=== PATIENT | female | born 1990 | race Caucasian/White ===

== ENCOUNTER → 2017-11-28 | Outpatient (CLI) | payer OTHER | LOC: M RAD 13:14 | DX: R22.9 Localized swelling, mass and lump, unspecified (principal) | CPT/HCPCS: 76536 ==

== ENCOUNTER → 2018-02-14 | Outpatient (CLI) | payer OTHER ==
[2018-02-14 17:09] LABS: HEMOGLOBIN 10.6 g/dl (12.0-16.0); MEAN CORPUSCULAR HGB CONC 34.2 g/dl (32.0-36.5); MEAN CORPUSCULAR VOLUME 87.8 fl (80.0-96.0); PLATELET COUNT, AUTOMATED 256 10^3/uL (150-450); RED BLOOD COUNT 3.53 10^6/uL (4.00-5.40); RED CELL DISTRIBUTION WIDTH 12.1 % (11.5-14.5); WHITE BLOOD COUNT 6.5 10^3/uL (4.0-10.0)
== END ==
LOC: M WUC 14:09
DX: N93.9 Abnormal uterine and vaginal bleeding, unspecified (principal)
CPT/HCPCS: 85027

== ENCOUNTER → 2018-02-18 | Outpatient (REF) | payer OTHER | LOC: M LAB REF 15:03 | DX: N93.9 Abnormal uterine and vaginal bleeding, unspecified (principal) ==

== ENCOUNTER 2018-03-17 10:50 | Emergency (ER) | payer OTHER ==
[2018-03-17 11:33] LABS: KETONE, URINE AUTO RFX 1+ mg/dL (NEGATIVE); LEUKOCYTE ESTERASE UR AUTO RFX NEGATIVE (NEGATIVE); MUCUS, URINE RFX SMALL (NEGATIVE); NITRITE, URINE AUTO RFX NEGATIVE (NEGATIVE); RBC, URINE AUTO RFX 2 /HPF (0-3); SPECIFIC GRAVITY UR AUTO RFX 1.019 (1.002-1.035); SQUAM EPITHELIAL CELL UR AURFX 3 /HPF (0-6); WBC, URINE AUTO RFX 1 /HPF (0-3)
[2018-03-17] MEDS: NS 1,000 ML IV (12:35)
[2018-03-17] MEDS: MORPHINE 4 MG/ML 1ML VIAL/SYRINGE (J2270) IV (12:35)
[2018-03-17] MEDS: ONDANSETRON 4MG/2ML VIAL (J2405) IV (12:35)
[2018-03-17] MEDS: GASTROGRAFIN SOLUTION 30ML PO ×2 (12:55→13:00)
[2018-03-17] MEDS: diphenhydrAMINE INJ 50MG/ML VIAL (J1200) IV (12:55)
[2018-03-17 13:42] LABS: BASO % 0.3 % (0.0-1.0); EOS % 0.1 % (0.0-3.0); HEMATOCRIT 38.1 % (36.0-47.0); HEMOGLOBIN 13.9 g/dl (12.0-15.5); IMMATURE GRANULOCYTE % 0.4 % (0-3.0); LYMPH # 1.7 10^3/uL (1.5-6.5); LYMPH % 21.4 % (24.0-44.0); MEAN CORPUSCULAR HEMOGLOBIN 31.3 pg (27.0-33.0); MEAN CORPUSCULAR HGB CONC 36.5 g/dl (32.0-36.5); MEAN CORPUSCULAR VOLUME 85.8 fl (80.0-96.0); MONO # 0.6 10^3/uL (0.0-0.8); MONO % 7.5 % (0.0-5.0); NEUTROPHILS # 5.6 10^3/uL (1.8-7.7); NEUTROPHILS % 70.3 % (36.0-66.0); PLATELET COUNT, AUTOMATED 264 10^3/uL (150-450); RED BLOOD COUNT 4.44 10^6/uL (4.00-5.40); RED CELL DISTRIBUTION WIDTH 11.9 % (11.5-14.5); WHITE BLOOD COUNT 7.9 10^3/uL (4.0-10.0)
[2018-03-17 13:43] LABS: ALBUMIN 4.9 GM/DL (3.2-5.2); ALBUMIN/GLOBULIN RATIO 1.29 (1.00-1.93); ALKALINE PHOSPHATASE 51 U/L (45-117); ALT/SGPT 17 U/L (12-78); ANION GAP 8 MEQ/L (8-16); AST/SGOT 10 U/L (7-37); BILIRUBIN,DIRECT 0.2 MG/DL (0.0-0.2); BILIRUBIN,TOTAL 0.8 MG/DL (0.2-1.0); BLOOD UREA NITROGEN 11 MG/DL (7-18); CALCIUM LEVEL 9.8 MG/DL (8.5-10.1); CARBON DIOXIDE LEVEL 25 MEQ/L (21-32); CHLORIDE LEVEL 108 MEQ/L (98-107); CREATININE FOR GFR 0.81 MG/DL (0.55-1.30); GLOMERULAR FILTRATION RATE > 60.0 (>60); GLUCOSE, FASTING 82 MG/DL (70-100); LIPASE 165 U/L (73-393); POTASSIUM SERUM 3.4 MEQ/L (3.5-5.1); SODIUM LEVEL 141 MEQ/L (136-145); TOTAL PROTEIN 8.7 GM/DL (6.4-8.2)
[2018-03-17] MEDS ORDERED: ISOVUE-370 76% 100ML VIAL (Q9967) As Ordered (14:08)
[2018-03-17] MEDS: POTASSIUM CHLORIDE 10 MEQ SR TABLET PO (14:15)
[2018-03-17] MEDS: CIPROFLOXACIN 500 MG TAB PO (15:29)
[2018-03-17] MEDS: metroNIDAZOLE (FLAGYL) 500 MG TAB PO (15:29)
== END 2018-03-17 15:41 | disposition home or self-care (01) ==
LOC: M ED 10:50
DX: K52.9 Noninfective gastroenteritis and colitis, unspecified (principal); K21.9 Gastro-esophageal reflux disease without esophagitis; F33.9 Major depressive disorder, recurrent, unspecified; M51.9 Unspecified thoracic, thoracolumbar and lumbosacral intervertebral disc disorder; F19.21 Other psychoactive substance dependence, in remission; Z79.899 Other long term (current) drug therapy; Z87.891 Personal history of nicotine dependence
CPT/HCPCS: J2270

== ENCOUNTER → 2019-06-26 | Outpatient (CLI) | payer MEDICAID ==
[~2019-06-26] MED LIST: AUGM875T27 PO; BISM262C8 PO; BUPR300T34 PO; BUSP10TA PO; CIPR-249 PO; COLA100C5 PO; FERR325T3 PO; FLAG500T PO; LEVA750T7 PO; NAPR-855 PO; OXYC1TAB23 PO; PERC5TAB12 PO; PERCOCET PO; PRAZ2CAP PO; PRIL20CA; TRAZ-163 PO; TYLE500T78 PO; [UNRECOGNIZED DRUG - OTHER]; [UNRECOGNIZED DRUG - REMARK]; naproxen PO
== END ==
LOC: M OUTALCOH 07:59
PROVIDERS: ATTEND Psychiatry & Neurology Psychiatry
DX: F11.20 Opioid dependence, uncomplicated (principal); F15.20 Other stimulant dependence, uncomplicated

== ENCOUNTER 2019-07-29 08:45 | Outpatient (RCR) | payer MEDICAID | END 2019-08-01 | LOC: M OUTALCOH 08:45 | PROVIDERS: ATTEND Psychiatry & Neurology Psychiatry | DX: F11.20 Opioid dependence, uncomplicated (principal); F15.20 Other stimulant dependence, uncomplicated; F17.200 Nicotine dependence, unspecified, uncomplicated ==

== ENCOUNTER 2019-08-22 21:42 | Emergency (ER) | payer MEDICAID, OTHER ==
[~2019-08-22] VITALS: Ht 167.6 cm; Wt 52.3 kg
[2019-08-22 21:42] VITALS: BP 133/72
[2019-08-22] MEDS ORDERED: SUBO8MIS SL (21:51)
[2019-08-22] MEDS ORDERED: AUGM875T28 PO (21:59)
[2019-08-22] MEDS ORDERED: AUGMENTIN 875 MG TAB PO ONE (22:00)
== END 2019-08-22 22:05 | disposition home or self-care (01) ==
LOC: M ED 21:42
DX: K02.9 Dental caries, unspecified (principal); F17.200 Nicotine dependence, unspecified, uncomplicated; F32.9 Major depressive disorder, single episode, unspecified; K21.9 Gastro-esophageal reflux disease without esophagitis; Z86.14 Personal history of Methicillin resistant Staphylococcus aureus infection; Z79.899 Other long term (current) drug therapy; M54.5 Low back pain

== ENCOUNTER → 2019-08-31 | Outpatient (RCR) | payer MEDICAID ==
[~2019-08-31] MED LIST changes: +AUGM875T28 PO; +SUBO8MIS SL
== END ==
LOC: M OUTALCOH 08-05 14:56
PROVIDERS: ATTEND Psychiatry & Neurology Psychiatry
DX: F11.20 Opioid dependence, uncomplicated (principal); F15.20 Other stimulant dependence, uncomplicated; F17.200 Nicotine dependence, unspecified, uncomplicated

== ENCOUNTER 2019-09-04 21:07 | Emergency (ER) | payer MEDICAID, OTHER ==
[~2019-09-04] VITALS: Ht 167.6 cm; Wt 52.3 kg
[2019-09-04] MEDS ORDERED: NS 1,000 ML IV ONE (22:00)
[2019-09-04] MEDS ORDERED: PANTOPRAZOLE 40MG INJ (PROTONIX) (C9113) IV ONE (22:00)
[2019-09-04 22:08] LABS: BASO % 0.4 % (0.0-1.0); EOS # 0.2 10^3/uL (0.0-0.5); EOS % 2.1 % (0.0-3.0); HEMATOCRIT 37.5 % (36.0-47.0); HEMOGLOBIN 12.4 g/dl (12.0-15.5); LYMPH # 2.2 10^3/uL (1.5-5.0); MEAN CORPUSCULAR HEMOGLOBIN 30.2 pg (27.0-33.0); MEAN CORPUSCULAR HGB CONC 33.1 g/dl (32.0-36.5); MEAN CORPUSCULAR VOLUME 91.5 fl (80.0-96.0); MONO # 0.5 10^3/uL (0.0-0.8); MONO % 6.9 % (0.0-5.0); NEUTROPHILS # 4.7 10^3/uL (1.5-8.5); NEUTROPHILS % 61.2 % (36.0-66.0); PLATELET COUNT, AUTOMATED 294 10^3/uL (150-450); WHITE BLOOD COUNT 7.7 10^3/uL (4.0-10.0)
[2019-09-04 22:47] LABS: ALBUMIN 3.7 GM/DL (3.2-5.2); ALT/SGPT 17 U/L (12-78); BILIRUBIN,DIRECT < 0.1 MG/DL (0.0-0.2); BILIRUBIN,TOTAL 0.2 MG/DL (0.2-1.0); BLOOD UREA NITROGEN 12 MG/DL (7-18); CALCIUM LEVEL 8.8 MG/DL (8.5-10.1); CARBON DIOXIDE LEVEL 28 MEQ/L (21-32); CHLORIDE LEVEL 107 MEQ/L (98-107); CREATININE FOR GFR 0.74 MG/DL (0.55-1.30); GLOMERULAR FILTRATION RATE > 60.0 (>60); GLUCOSE, FASTING 80 MG/DL (70-100); LIPASE 106 U/L (73-393); POTASSIUM SERUM 4.6 MEQ/L (3.5-5.1); SODIUM LEVEL 139 MEQ/L (136-145); TOTAL PROTEIN 7.2 GM/DL (6.4-8.2)
[2019-09-04 23:15] VITALS: BP 115/61
[2019-09-04] MEDS ORDERED: MIRA3350 PO (23:29)
--- NOTE | 2019-09-05 08:52 | REP ---
Acute abdominal series three views including PA chest and supine upright abdomen: PA chest: Comparison is 02/22/2016. The lung gentile are clear. Cardiac size is normal. The len, mediastinum, skeletal structures are unremarkable. There is no free subdiaphragmatic air. Impression: Negative PA chest. Abdomen, supine upright views: Comparison is the abdomen/pelvis CT dated 03/17/2018. The bowel gas pattern is normal. There are no calcifications. The skeletal structures and soft tissues otherwise are. Impression: Normal bowel gas pattern. Electronically Signed by Thee Cuadra MD 09/05/2019 08:44 A
== END 2019-09-04 23:38 | disposition home or self-care (01) ==
LOC: M ED 21:07
DX: K59.00 Constipation, unspecified (principal); K21.9 Gastro-esophageal reflux disease without esophagitis; F17.200 Nicotine dependence, unspecified, uncomplicated; Z79.899 Other long term (current) drug therapy
CPT/HCPCS: 74021; 80048; 80076; 83690; 84702; 85025; 96374; 99284; C9113

== ENCOUNTER 2019-09-10 09:00 | Outpatient (RCR) | payer MEDICAID ==
[~2019-09-10 09:00] MED LIST changes: +MIRA3350 PO
== END 2019-10-01 ==
LOC: M OUTALCOH 09:00
PROVIDERS: ATTEND Psychiatry & Neurology Psychiatry
DX: F11.20 Opioid dependence, uncomplicated (principal); F15.20 Other stimulant dependence, uncomplicated; F17.200 Nicotine dependence, unspecified, uncomplicated

== ENCOUNTER → 2019-10-14 | Outpatient (CLI) | payer MEDICAID ==
[2019-10-14 11:15] LABS: HEMATOCRIT 38.4 % (36.0-47.0); HEMOGLOBIN 12.8 g/dl (12.0-15.5); MEAN CORPUSCULAR HEMOGLOBIN 30.1 pg (27.0-33.0); MEAN CORPUSCULAR HGB CONC 33.3 g/dl (32.0-36.5); MEAN CORPUSCULAR VOLUME 90.4 fl (80.0-96.0); PLATELET COUNT, AUTOMATED 325 10^3/uL (150-450); RED BLOOD COUNT 4.25 10^6/uL (4.00-5.40); WHITE BLOOD COUNT 7.2 10^3/uL (4.0-10.0)
[2019-10-14 11:41] LABS: ALBUMIN 3.8 GM/DL (3.2-5.2); ALT/SGPT 17 U/L (12-78); BILIRUBIN,TOTAL 0.3 MG/DL (0.2-1.0); BLOOD UREA NITROGEN 10 MG/DL (7-18); CALCIUM LEVEL 9.1 MG/DL (8.5-10.1); CARBON DIOXIDE LEVEL 28 MEQ/L (21-32); CHLORIDE LEVEL 107 MEQ/L (98-107); CREATININE FOR GFR 0.74 MG/DL (0.55-1.30); GLOMERULAR FILTRATION RATE > 60.0 (>60); GLUCOSE, FASTING 100 MG/DL (70-100); POTASSIUM SERUM 4.5 MEQ/L (3.5-5.1); SODIUM LEVEL 140 MEQ/L (136-145); TOTAL PROTEIN 7.8 GM/DL (6.4-8.2)
[2019-10-14 11:43] LABS: HCG, SERUM QUALITATIVE NEGATIVE (NEGATIVE)
[2019-10-14 12:01] LABS: HEPATITIS B SURFACE ANTIGEN NEGATIVE (NEGATIVE)
[2019-10-14 12:30] LABS: HIV 1&2 SCREEN CENTAUR NEGATIVE (NEGATIVE)
[2019-10-14 12:37] LABS: HEPATITIS C VIRUS ABY INDEX > 11.0 INDEX (<0.8)
[2019-10-14 13:08] LABS: CHLAMYDIA DNA AMPLIFICATION NEGATIVE (NEGATIVE); GC DNA AMPLIFICATION NEGATIVE (NEGATIVE)
--- NOTE | 2019-10-14 13:55 | ECGEPIP ---
[facility] Test Date: 2019-10-14 Pat Name: LYLE BAKER Department: Room: - Gender: Female Ultrasound Tech: JUANCHO : 1990 Requested By: Thee Penaloza Order Number: [id number] Reading MD: Arianne Fuentes Measurements Intervals [place] Rate: 57 P: 22 LA: 118 QRS: 75 QRSD: 97 T: 58 QT: 421 QTc: 412 Interpretive Statements SINUS BRADYCARDIA WITH SHORT LA INTERVAL SLOWER RATE AND SHORTER LA C/W PRIOR IMPROVED VOLTAGE LIMB LEADS C/W 02/23/16 Electronically Signed on 10-14-2019 13:55:11 EST by Arianne Fuentes
== END ==
LOC: M LAB 10:04
PROVIDERS: ATTEND Family Medicine
DX: F11.20 Opioid dependence, uncomplicated (principal)

== ENCOUNTER 2019-10-30 08:51 | Emergency (ER) | payer MEDICAID, OTHER ==
[~2019-10-30] VITALS: Ht 167.6 cm; Wt 54.9 kg
[2019-10-30] MEDS ORDERED: METH10CO3 PO (09:02)
[2019-10-30] MEDS ORDERED: ONDANSETRON 4MG/2ML VIAL (J2405) IV ONE (09:30)
[2019-10-30] MEDS ORDERED: NS 1,000 ML IV ONE (09:30)
[2019-10-30] MEDS ORDERED: KETOROLAC 30 MG/ML VIAL (J1885) IV ONE (09:30)
[2019-10-30 09:57] LABS: BILIRUBIN, URINE MANUAL OBSCURED (NEGATIVE); GLUCOSE, URINE (UA) MANUAL NEGATIVE (NEGATIVE); KETONE, URINE MANUAL OBSCURED mg/dL (NEGATIVE); UROBILINOGEN, URINE MANUAL OBSCURED mg/dl (NORMAL)
[2019-10-30 09:58] LABS: BASO # 0.1 10^3/uL (0.0-0.2); BASO % 0.6 % (0.0-1.0); EOS # 0.1 10^3/uL (0.0-0.5); HEMATOCRIT 35.8 % (36.0-47.0); HEMOGLOBIN 11.9 g/dl (12.0-15.5); LYMPH # 1.8 10^3/uL (1.5-5.0); LYMPH % 22.6 % (24.0-44.0); MEAN CORPUSCULAR HEMOGLOBIN 29.4 pg (27.0-33.0); MEAN CORPUSCULAR HGB CONC 33.2 g/dl (32.0-36.5); MEAN CORPUSCULAR VOLUME 88.4 fl (80.0-96.0); MONO # 0.8 10^3/uL (0.0-0.8); MONO % 10.1 % (0.0-5.0); NEUTROPHILS # 5.3 10^3/uL (1.5-8.5); NEUTROPHILS % 65.3 % (36.0-66.0); PLATELET COUNT, AUTOMATED 207 10^3/uL (150-450); RED BLOOD COUNT 4.05 10^6/uL (4.00-5.40); WHITE BLOOD COUNT 8.2 10^3/uL (4.0-10.0)
[2019-10-30 10:21] LABS: BACTERIA, URINE SMALL AMOUNT; RBC, URINE TNTC /hpf (0-3); SQUAMOUS EPITHELIAL CELL URINE SMALL AMOUNT /hpf (SMALL AMT)
[2019-10-30 10:22] LABS: HYALINE CAST, URINE NONE SEEN /lpf (0-1); MUCUS, URINE SMALL AMOUNT (NEGATIVE)
--- NOTE | 2019-10-30 11:53 | REP ---
Clinical: Pelvic pain and vaginal bleeding . Technique: Transabdominal pelvic ultrasound followed by transvaginal examination for better evaluation of the endometrium and adnexa with color Doppler evaluation of the ovaries. Findings: Bladder is unremarkable and measures 6.6 x 3.3 x 5.5 cm . Normal anteverted uterus measures 8.0 x 3.9 x 5.4 cm . The endometrial complex measures 7.3 mm thickness. No discrete uterine or endometrial abnormalities are appreciated. Bilateral ovaries are normal in vascularity without torsion. Right ovary measures 6.6 x 4.7 x 7.2 cm (RI 0.52) and includes 5.5 x 3.2 x 5.2 cm complex hemorrhagic cyst. Left ovary is normal and measures 3.7 x 2.1 x 2.6 cm (RI 0.59). No pelvic free fluid or adnexal mass lesion Impression: 1. Large hemorrhagic right ovarian cyst likely physiologic. Consider reevaluation in 4-6 weeks to evaluate for resolution. Electronically Signed by Kwesi Nation MD 10/30/2019 11:45 A
[2019-10-30 13:50] VITALS: BP 135/79
[2019-10-30] MEDS ORDERED: ACETAMINOPHEN 325 MG TAB PO ONE (14:00)
[2019-10-30 14:28] LABS: CHLAMYDIA DNA AMPLIFICATION NEGATIVE (NEGATIVE); GC DNA AMPLIFICATION NEGATIVE (NEGATIVE)
--- NOTE | 2019-11-02 13:35 | ED PDOC ---
Post-Departure Follow-Up tanya rutherford and dr dillard faxed formal report of pelvic us for fu Maru Matt MD Nov 02, 2019 13:35
== END 2019-10-30 14:18 | disposition home or self-care (01) ==
LOC: M ED 08:51
DX: N83.291 Other ovarian cyst, right side (principal); N93.9 Abnormal uterine and vaginal bleeding, unspecified; K21.9 Gastro-esophageal reflux disease without esophagitis; F32.9 Major depressive disorder, single episode, unspecified; F11.10 Opioid abuse, uncomplicated; F15.10 Other stimulant abuse, uncomplicated; F17.200 Nicotine dependence, unspecified, uncomplicated; Z79.899 Other long term (current) drug therapy
CPT/HCPCS: 76830; 76856; 80047; 81000; 84702; 85025; 86850; 86900; 86901; 87086; 87210; 87491; 87591; 93976; 96361; 96374; 96375; 99284; J1885; J2405

== ENCOUNTER 2021-09-01 19:01 | Emergency (ER) | payer OTHER ==
[~2021-09-01] VITALS: Ht 167.6 cm; Wt 61.6 kg
[~2021-09-01 19:01] MED LIST changes: -BUPR300T34 PO; +BUPR300T92 PO; +METH10CO3 PO; -TRAZ-163 PO; +TRAZ-257 PO
[2021-09-01 19:03] VITALS: BP 115/62
[2021-09-01] MEDS ORDERED: BUPR300T92 (19:31)
[2021-09-01] MEDS ORDERED: QUET50TA4 (19:31)
[2021-09-01] MEDS ORDERED: BUPR150T12 (19:31)
[2021-09-01] MEDS ORDERED: BUSP1TAB (19:31)
[2021-09-01] MEDS ORDERED: LIDOCAINE 2% MDV 20ML VIAL SC ONE (21:45)
[2021-09-01] MEDS ORDERED: DALBAVANCIN 1,500 MG in D5W 250 ML IV ONE (22:30)
[2021-09-01 23:02] LABS: BASO # 0.1 10^3/uL (0.0-0.2); BASO % 0.4 % (0.0-1.0); EOS # 0.3 10^3/uL (0.0-0.5); EOS % 2.7 % (0.0-3.0); HEMOGLOBIN 11.6 g/dl (12.0-15.5); LYMPH # 2.2 10^3/uL (1.5-5.0); LYMPH % 17.6 % (24.0-44.0); MEAN CORPUSCULAR HEMOGLOBIN 29.2 pg (27.0-33.0); MEAN CORPUSCULAR HGB CONC 34.1 g/dl (32.0-36.5); MEAN CORPUSCULAR VOLUME 85.6 fl (80.0-96.0); MONO # 1.3 10^3/uL (0.0-0.8); MONO % 10.4 % (2.0-8.0); NEUTROPHILS # 8.4 10^3/uL (1.5-8.5); NEUTROPHILS % 68.5 % (36.0-66.0); PLATELET COUNT, AUTOMATED 286 10^3/uL (150-450); RED BLOOD COUNT 3.97 10^6/uL (4.00-5.40); WHITE BLOOD COUNT 12.2 10^3/uL (4.0-10.0)
[2021-09-01 23:25] LABS: ERYTHROCYTE SEDIMENTATION RATE 61 mm/hr (0-20)
[2021-09-01 23:48] LABS: BLOOD UREA NITROGEN 18 MG/DL (7-18); CARBON DIOXIDE LEVEL 27 MEQ/L (21-32); CHLORIDE LEVEL 104 MEQ/L (98-107); CREATININE FOR GFR 0.91 MG/DL (0.55-1.30); GLOMERULAR FILTRATION RATE > 60.0 (>60); GLUCOSE, FASTING 76 MG/DL (70-100); POTASSIUM SERUM 4.7 MEQ/L (3.5-5.1); SODIUM LEVEL 137 MEQ/L (136-145)
[2021-09-01 23:49] LABS: ALBUMIN 3.7 GM/DL (3.2-5.2); ALT/SGPT 16 U/L (12-78); BILIRUBIN,DIRECT < 0.1 MG/DL (0.0-0.2); BILIRUBIN,TOTAL 0.2 MG/DL (0.2-1.0); C REACTIVE PROTEIN QUANTITATIV 3.56 MG/DL (0.00-0.30); CALCIUM LEVEL 9.2 MG/DL (8.5-10.1); TOTAL PROTEIN 7.8 GM/DL (6.4-8.2)
== END 2021-09-02 02:16 | disposition home or self-care (01) ==
LOC: M ED 19:01
DX: L02.511 Cutaneous abscess of right hand (principal); L03.114 Cellulitis of left upper limb; K21.9 Gastro-esophageal reflux disease without esophagitis; M54.9 Dorsalgia, unspecified; F32.9 Major depressive disorder, single episode, unspecified; F11.10 Opioid abuse, uncomplicated; F17.200 Nicotine dependence, unspecified, uncomplicated
CPT/HCPCS: 10060; 80048; 80076; 83605; 85025; 85652; 86140; 87040; 87070; 87077; 87186; 87205; 96365; 99283; J0875

== ENCOUNTER 2022-06-03 17:30 | Emergency (ER) | payer OTHER ==
[~2022-06-03] VITALS: Ht 167.6 cm; Wt 70.5 kg
[~2022-06-03 17:30] MED LIST changes: +BUPR150T12; +BUPR300T92; +BUSP1TAB; +QUET50TA4
[2022-06-03] MEDS ORDERED: DALBAVANCIN 1,500 MG in D5W 250 ML IV ONE (22:15)
[2022-06-03 22:34] LABS: BASO % 0.3 % (0.0-1.0); EOS # 0.2 10^3/uL (0.0-0.5); EOS % 1.5 % (0.0-3.0); HEMATOCRIT 32.9 % (36.0-47.0); LYMPH % 20.1 % (24.0-44.0); MEAN CORPUSCULAR HEMOGLOBIN 29.8 pg (27.0-33.0); MEAN CORPUSCULAR HGB CONC 33.4 g/dl (32.0-36.5); MEAN CORPUSCULAR VOLUME 89.2 fl (80.0-96.0); MONO % 10.2 % (2.0-8.0); NEUTROPHILS # 6.7 10^3/uL (1.5-8.5); NEUTROPHILS % 67.2 % (36.0-66.0); PLATELET COUNT, AUTOMATED 348 10^3/uL (150-450); RED BLOOD COUNT 3.69 10^6/uL (4.00-5.40); WHITE BLOOD COUNT 9.9 10^3/uL (4.0-10.0)
[2022-06-03 22:54] LABS: BLOOD UREA NITROGEN 17 MG/DL (7-18); C REACTIVE PROTEIN QUANTITATIV 5.72 MG/DL (0.00-0.30); CALCIUM LEVEL 8.7 MG/DL (8.5-10.1); CARBON DIOXIDE LEVEL 25 MEQ/L (21-32); CHLORIDE LEVEL 107 MEQ/L (98-107); CREATININE FOR GFR 0.75 MG/DL (0.55-1.30); GLOMERULAR FILTRATION RATE > 60.0 (>60); GLUCOSE, FASTING 87 MG/DL (70-100); POTASSIUM SERUM 4.1 MEQ/L (3.5-5.1); SODIUM LEVEL 139 MEQ/L (136-145)
[2022-06-04 01:00] VITALS: BP 130/70
== END 2022-06-04 01:19 | disposition home or self-care (01) ==
LOC: M ED 17:30
DX: L03.115 Cellulitis of right lower limb (principal); F19.188 Other psychoactive substance abuse with other psychoactive substance-induced disorder; F17.200 Nicotine dependence, unspecified, uncomplicated; Z86.14 Personal history of Methicillin resistant Staphylococcus aureus infection
CPT/HCPCS: 80048; 85025; 86140; 96374; 99284; J0875

== ENCOUNTER → 2022-07-17 | Outpatient (REF) | LOC: M EMP 11:39 | PROVIDERS: ATTEND Family Medicine | DX: Z20.822 Contact with and (suspected) exposure to COVID-19 (principal) ==

== ENCOUNTER 2023-05-02 22:58 | Emergency (ER) | payer OTHER ==
[2023-05-02 22:58] VITALS: BP 149/77
[2023-05-03] MEDS ORDERED: METH-1177 PO (15:24)
[2023-05-03] MEDS ORDERED: CYCL-707 (15:25)
[2023-05-03] MEDS ORDERED: LIDO1PAD (15:25)
[2023-05-03] MEDS ORDERED: QUET400T2 (15:26)
[2023-05-03] MEDS ORDERED: OXYB5TAB10 (15:26)
[2023-05-04] MEDS ORDERED: GABA-282 PO (00:55)
[2023-05-04] MEDS ORDERED: DOXY-443 PO (00:55)
[2023-05-04] MEDS ORDERED: METH-1165 PO (00:55)
== END 2023-05-03 03:32 | disposition left against medical advice (07) ==
LOC: M ED 22:58
DX: Z53.21 Procedure and treatment not carried out due to patient leaving prior to being seen by health care provider (principal)

== ENCOUNTER 2023-05-03 12:31 | Emergency (ER) | payer MEDICAID, OTHER ==
[~2023-05-03] VITALS: Ht 167.6 cm; Wt 63.6 kg
[2023-05-03] MEDS ORDERED: KETOROLAC 30 MG/ML 1ML VIAL IV ONE (14:20)
[2023-05-03] MEDS ORDERED: MECLIZINE 25 MG TABLET PO ONE (14:20)
[2023-05-03] MEDS ORDERED: METH-1177 PO (15:24)
[2023-05-03] MEDS ORDERED: LIDO1PAD (15:25)
[2023-05-03] MEDS ORDERED: CYCL-707 (15:25)
[2023-05-03] MEDS ORDERED: OXYB5TAB10 (15:26)
[2023-05-03] MEDS ORDERED: QUET400T2 (15:26)
[2023-05-03] MEDS ORDERED: METHADONE 10MG TAB PO ONE (16:15)
[2023-05-03 17:47] LABS: ETHYL ALCOHOL (ETHANOL) 0.005 % (0.000-0.010)
[2023-05-03 17:49] LABS: BLOOD UREA NITROGEN 11 MG/DL (9-23); CALCIUM LEVEL 7.9 MG/DL (8.5-10.1); CARBON DIOXIDE LEVEL 24 MMOL/L (20-31); CHLORIDE LEVEL 104 MMOL/L (98-107); CREATININE FOR GFR 0.59 MG/DL (0.55-1.30); GLOMERULAR FILTRATION RATE > 60.0 (>60); GLUCOSE, FASTING 92 MG/DL (60-100); POTASSIUM SERUM 3.5 MMOL/L (3.5-5.1); SODIUM LEVEL 137 MMOL/L (136-145)
[2023-05-03 17:50] LABS: CK-MB VALUE MASS < 1.0 NG/ML (<3.6); HCG, SERUM QUANTITATIVE < 2.6 MIU/ML (<4.2)
[2023-05-03 17:52] LABS: CPK CREATINE PHOSPHOKINASE 31 U/L (34-145); MB/CK RELATIVE INDEX 3.22 (< OR =4)
[2023-05-03 17:56] LABS: BASO % 0.5 % (0.0-1.0); EOS # 0.2 10^3/uL (0.0-0.5); EOS % 2.7 % (0.0-3.0); HEMATOCRIT 29.6 % (36.0-47.0); HEMOGLOBIN 9.5 g/dl (12.0-15.5); LYMPH # 1.2 10^3/uL (1.5-5.0); LYMPH % 16.2 % (24.0-44.0); MEAN CORPUSCULAR HEMOGLOBIN 28.7 pg (27.0-33.0); MEAN CORPUSCULAR HGB CONC 32.1 g/dl (32.0-36.5); MEAN CORPUSCULAR VOLUME 89.4 fl (80.0-96.0); MONO # 1.1 10^3/uL (0.0-0.8); MONO % 14.3 % (2.0-8.0); NEUTROPHILS # 4.8 10^3/uL (1.5-8.5); NEUTROPHILS % 65.5 % (36.0-66.0); PLATELET COUNT, AUTOMATED 235 10^3/uL (150-450); RED BLOOD COUNT 3.31 10^6/uL (4.00-5.40); WHITE BLOOD COUNT 7.4 10^3/uL (4.0-10.0)
[2023-05-03 18:27] LABS: ERYTHROCYTE SEDIMENTATION RATE 66 mm/hr (0-20)
[2023-05-03] MEDS ORDERED: CEPHALEXIN 500 MG CAP PO ONE (18:55)
[2023-05-03] MEDS ORDERED: methocarbamoL 750 MG TAB PO ONE (23:25)
[2023-05-03] MEDS ORDERED: GABAPENTIN 300 MG CAP PO ONE (23:25)
[2023-05-04 00:22] LABS: AMPHETAMINES LEVEL URINE NEGATIVE (NEGATIVE); BARBITURATES URINE NEGATIVE (NEGATIVE); BENZODIAZEPINES URINE NEGATIVE (NEGATIVE); CANNABINOIDS URINE NEGATIVE (NEGATIVE); COCAINE METABOLITE URINE NEGATIVE (NEGATIVE); OPIATES URINE NEGATIVE (NEGATIVE); PHENCYCLIDINE URINE NEGATIVE (NEGATIVE)
[2023-05-04 00:26] LABS: METHADONE URINE POSITIVE (NEGATIVE)
[2023-05-04] MEDS ORDERED: GABA-282 PO (00:55)
[2023-05-04] MEDS ORDERED: METH-1165 PO (00:55)
[2023-05-04] MEDS ORDERED: DOXY-443 PO (00:55)
[2023-05-04 01:07] VITALS: BP 108/59; TEMP 98.5; O2SAT 96
== END 2023-05-04 01:18 | disposition home or self-care (01) ==
LOC: M ED 12:31 → EDBD 12:31 → M ED 05-04 01:18
DX: R22.32 Localized swelling, mass and lump, left upper limb (principal); M54.50 Low back pain, unspecified; F32.A Depression, unspecified; K21.9 Gastro-esophageal reflux disease without esophagitis; F19.10 Other psychoactive substance abuse, uncomplicated; F17.200 Nicotine dependence, unspecified, uncomplicated; M43.16 Spondylolisthesis, lumbar region; M51.46 Schmorl's nodes, lumbar region; M43.06 Spondylolysis, lumbar region
CPT/HCPCS: 36415; 70450; 72131; 72148; 73130; 74176; 80048; 80307; 81001; 82077; 82550; 82553; 84702; 85025; 85652; 86140; 87040; 87077; 87086; 87186; 87486; 87581; 87633; 87798; 93005; 99284; S0109

== ENCOUNTER → 2024-09-01 | Outpatient (CLI) | payer OTHER ==
[~2024-09-01] MED LIST changes: +BUPR-597; +BUPR-597 PO; -BUPR300T92; -BUPR300T92 PO; +CYCL-707; +DOXY-323 PO; +GABA-282 PO; +LIDO1PAD; +METH-1165 PO; +METH-1177 PO; +OXYB5TAB14; +QUET400T2
[2024-09-01 10:54] LABS: HEMATOCRIT 40.5 % (36.0-47.0); HEMOGLOBIN 13.7 g/dl (12.0-15.5); MEAN CORPUSCULAR HEMOGLOBIN 30.4 pg (27.0-33.0); MEAN CORPUSCULAR HGB CONC 33.8 g/dl (32.0-36.5); PLATELET COUNT, AUTOMATED 248 10^3/uL (150-450); WHITE BLOOD COUNT 6.1 10^3/uL (4.0-10.0)
[2024-09-01 11:27] LABS: ALBUMIN 4.5 G/DL (3.2-5.2); ALKALINE PHOSPHATASE 57 U/L (46-116); ALT/SGPT 14 U/L (7.0-40); AST/SGOT 9 U/L (<34); BILIRUBIN,TOTAL 0.4 MG/DL (0.3-1.2); BLOOD UREA NITROGEN 24 MG/DL (9-23); CALCIUM LEVEL 10.1 MG/DL (8.5-10.1); CARBON DIOXIDE LEVEL 28 MMOL/L (20-31); CHLORIDE LEVEL 106 MMOL/L (98-107); CREATININE FOR GFR 0.96 MG/DL (0.55-1.30); GLOMERULAR FILTRATION RATE > 60.0 (>60); GLUCOSE, FASTING 79 MG/DL (60-100); POTASSIUM SERUM 4.2 MMOL/L (3.5-5.1); SODIUM LEVEL 136 MMOL/L (136-145); TOTAL PROTEIN 8.1 G/DL (5.7-8.2)
[2024-09-01 12:11] LABS: HCG, SERUM QUALITATIVE NEGATIVE (NEGATIVE)
[2024-09-01 12:26] LABS: HEPATITIS B SURFACE ANTIGEN NEGATIVE (NEGATIVE)
[2024-09-01 12:27] LABS: GC DNA AMPLIFICATION NEGATIVE (NEGATIVE)
[2024-09-01 12:38] LABS: HIV 1&2 SCREEN NEGATIVE (NEGATIVE)
[2024-09-01 12:52] LABS: HEPATITIS C VIRUS ABY INDEX > 11.00 INDEX (<0.8)
== END ==
LOC: M LAB 09:30
PROVIDERS: ATTEND Family Medicine
DX: F11.20 Opioid dependence, uncomplicated (principal)

== ENCOUNTER 2025-04-05 12:25 | Emergency (ER) | payer OTHER ==
[~2025-04-05] VITALS: Ht 167.6 cm; Wt 66.9 kg
[~2025-04-05 12:25] MED LIST changes: -BISM262C8 PO; +BISM262T51 PO; -BUPR-597; -BUPR-597 PO; +BUPR-766; +BUPR-766 PO; -DOXY-323 PO; +DOXY-441 PO; +GABA-1172 PO; -GABA-282 PO
[2025-04-05] MEDS ORDERED: QUET200T2 (12:34)
[2025-04-05 14:08] LABS: BASO % 0.9 % (0.0-1.0); EOS # 0.1 10^3/uL (0.0-0.5); EOS % 1.3 % (0.0-3.0); HEMATOCRIT 35.9 % (36.0-47.0); HEMOGLOBIN 12.1 g/dl (12.0-15.5); LYMPH # 1.2 10^3/uL (1.5-5.0); LYMPH % 25.2 % (24.0-44.0); MEAN CORPUSCULAR HGB CONC 33.7 g/dl (32.0-36.5); MEAN CORPUSCULAR VOLUME 89.1 fl (80.0-96.0); MONO # 0.7 10^3/uL (0.0-0.8); MONO % 15.9 % (2.0-8.0); NEUTROPHILS # 2.5 10^3/uL (1.5-8.5); NEUTROPHILS % 54.8 % (36.0-66.0); PLATELET COUNT, AUTOMATED 253 10^3/uL (150-450); RED BLOOD COUNT 4.03 10^6/uL (4.00-5.40); WHITE BLOOD COUNT 4.6 10^3/uL (4.0-10.0)
[2025-04-05 14:31] LABS: HCG, SERUM QUANTITATIVE 362.2 MIU/ML (<4.2)
[2025-04-05 14:34] LABS: BLOOD UREA NITROGEN 20 MG/DL (9-23); CALCIUM LEVEL 9.5 MG/DL (8.5-10.1); CARBON DIOXIDE LEVEL 25 MMOL/L (20-31); CHLORIDE LEVEL 107 MMOL/L (98-107); CREATININE FOR GFR 0.83 MG/DL (0.55-1.30); GLOMERULAR FILTRATION RATE > 90.0 (>60); GLUCOSE, FASTING 96 MG/DL (60-100); POTASSIUM SERUM 4.2 MMOL/L (3.5-5.1); SODIUM LEVEL 141 MMOL/L (136-145)
[2025-04-05 15:00] LABS: KETONE, URINE AUTO RFX NEGATIVE (NEGATIVE); LEUKOCYTE ESTERASE UR AUTO RFX NEGATIVE (NEGATIVE); MUCUS, URINE RFX SMALL (NEGATIVE); NITRITE, URINE AUTO RFX NEGATIVE (NEGATIVE); RBC, URINE AUTO RFX 138 /HPF (0-3); SQUAM EPITHELIAL CELL UR AURFX 15 /HPF (0-6); WBC, URINE AUTO RFX 2 /HPF (0-3)
[2025-04-05] MEDS: METHOTREXATE 50MG/2ML VIAL IM ONE (19:29)
[2025-04-05 20:31] VITALS: BP 129/79; TEMP 97.3; O2SAT 99
== END 2025-04-05 20:34 | disposition home or self-care (01) ==
LOC: M ED 12:25
DX: O00.00 Abdominal pregnancy without intrauterine pregnancy (principal); K21.9 Gastro-esophageal reflux disease without esophagitis; F17.200 Nicotine dependence, unspecified, uncomplicated; F19.10 Other psychoactive substance abuse, uncomplicated; Z79.899 Other long term (current) drug therapy; Z3A.01 Less than 8 weeks gestation of pregnancy
CPT/HCPCS: 76801; 76830; 80048; 81001; 84702; 85025; 86850; 86870; 86900; 86901; 93976; 96372; 99284; J9260

== ENCOUNTER → 2025-04-08 | Outpatient (REF) | payer OTHER ==
[~2025-04-08] MED LIST changes: +QUET200T2
== END ==
LOC: M LABDRAWP 17:35
PROVIDERS: ATTEND Registered Nurse
DX: O00.90 Unspecified ectopic pregnancy without intrauterine pregnancy (principal); Z3A.00 Weeks of gestation of pregnancy not specified

== ENCOUNTER → 2025-04-12 | Outpatient (CLI) | payer OTHER | LOC: M LAB 11:43 | PROVIDERS: ATTEND Registered Nurse | DX: O00.90 Unspecified ectopic pregnancy without intrauterine pregnancy (principal) ==

== ENCOUNTER → 2025-04-12 | Outpatient (CLI) | payer OTHER | LOC: M PLALAB 10:29 → M LAB 10:29 | PROVIDERS: ATTEND Registered Nurse | DX: O00.90 Unspecified ectopic pregnancy without intrauterine pregnancy (principal) ==

== ENCOUNTER 2025-11-02 10:41 | Emergency (ER) | payer OTHER ==
[~2025-11-02] VITALS: Ht 172.7 cm; Wt 85.5 kg
[2025-11-02 11:26] LABS: KETONE, URINE AUTO RFX NEGATIVE (NEGATIVE); NITRITE, URINE AUTO RFX NEGATIVE (NEGATIVE); RBC, URINE AUTO RFX 2 /HPF (0-3); SQUAM EPITHELIAL CELL UR AURFX 28 /HPF (0-6); WBC, URINE AUTO RFX 5 /HPF (0-3)
[2025-11-02 11:27] LABS: LEUKOCYTE ESTERASE UR AUTO RFX TRACE (NEGATIVE)
[2025-11-02 11:41] LABS: URINE PREG TEST NEGATIVE (NEGATIVE)
[2025-11-02] MEDS ORDERED: SULF-7 PO (12:22)
[2025-11-02 12:25] VITALS: BP 126/88; TEMP 98.3; O2SAT 97
== END 2025-11-02 12:30 | disposition home or self-care (01) ==
LOC: M ED 10:41
DX: N10 Acute pyelonephritis (principal); K59.00 Constipation, unspecified; F17.200 Nicotine dependence, unspecified, uncomplicated; Z79.2 Long term (current) use of antibiotics; Z79.899 Other long term (current) drug therapy